=== PATIENT | male | born 1955 | race Caucasian/White ===

== ENCOUNTER 2017-09-18 09:57 | Outpatient (CLI) | payer OTHER | END 2017-09-18 09:58 | disposition home or self-care (01) | LOC: EKG 09:57 | PROVIDERS: ATTEND Family Medicine | DX: R06.09 Other forms of dyspnea (principal) | CPT/HCPCS: 93017 ==

== ENCOUNTER 2018-06-29 15:40 | Outpatient (CLI) | payer MEDICARE ==
--- NOTE | 2018-06-29 16:55 | RAD ---
LUMBAR SPINE THREE VIEWS INCLUDING LATERAL AND FLEXION AND EXTENSION VIEWS: HISTORY: Degenerative disk disease, M51.36. FINDINGS: Neutral, flexion, and extension views of the lumbar spine demonstrate disk space height loss at L4-L5 . Mild anterior osteophytes are seen at the L3, L4, and L5 levels. Findings compatible with changes of spondylosis. No acute abnormalities seen. IMPRESSION: Mild mid and lower lumbar changes of spondylosis. POS: NADINE
--- NOTE | 2018-06-29 17:08 | MRI ---
MRI LUMBAR SPINE: 06/29/2018 COMPARISON: 05/01/2016 TECHNIQUE: Multiplanar, multisequence, noncontrast-enhanced MR images of the lumbar spine demonstrate a large nu mber of cysts involving the right kidney. FINDINGS: The central canal and neural foramen are patent. L1-L2: Unremarkable, except for some minimal facet hypertrophy. The central canal and neural forame n are patent. L2-L3: Disk desiccation is seen. There is broad-based central and left L2-L3 lateral recess disk pr otrusion. This is unchanged since the previous comparison MRI from 05/01/2016. The degree of centra l and left paracentral stenosis is unchanged. The neural foramen are patent. L3-L4: Annular fissure seen at the posterior aspect of the annulus fibrosis. A broad-based disk pro trusion with bilateral facet hypertrophy is seen. This results in moderate central and right paracen tral stenosis. This has not significantly changed since the previous exam. The neural foramen are p atent. L4-L5: Disk desiccation is seen. There is a broad-based disk protrusion with bilateral severe facet and ligamentum flavum hypertrophy. This results in severe L4-L5 central stenosis, more pronounced t mann on the previous comparison exam, suggesting increasing L4-L5 central and lateral recess stenosis. There is moderate to severe right, and mild left-sided neural foraminal narrowing present. L5-S1: Disk desiccation is seen. There is a broad-based central disk protrusion, resulting in mild central stenosis. There is mild right and moderate to severe left-sided neural foraminal narrowing s een. IMPRESSION: Severe L4-L5 central and lateral recess stenosis, worsening since the previous comparison examination . There are also broad-based central disk protrusions at L2-L3, L3-L4, and L5-S1. POS: NADINE
== END 2018-06-29 15:41 | disposition home or self-care (01) ==
LOC: TBSIIMAG 15:40
PROVIDERS: ATTEND Nurse Practitioner Family
DX: M51.16 Intervertebral disc disorders with radiculopathy, lumbar region (principal); M47.26 Other spondylosis with radiculopathy, lumbar region; M48.061 Spinal stenosis, lumbar region without neurogenic claudication; M51.17 Intervertebral disc disorders with radiculopathy, lumbosacral region
CPT/HCPCS: 72100; 72148

== ENCOUNTER 2018-08-24 12:09 | Outpatient (CLI) | payer MEDICARE ==
--- NOTE | 2018-08-24 13:23 | ULT ---
BILATERAL RENAL ULTRASOUND COMPLETE: HISTORY: Renal cyst. Followup MRI. FINDINGS: The right kidney measures 16.5 x 8.4 x 6.6 cm. There is a large 8.2 x 9.8 x 9.6 cm septated right re nal cyst. The left kidney measures 11.1 x 6.7 x 5.7 cm. No renal hydronephrosis. Urinary bladder appears unremarkable. IMPRESSION: Large septated right renal cyst. No renal hydronephrosis or other acute process. POS: OFF
== END 2018-08-24 12:10 | disposition home or self-care (01) ==
LOC: BICULT 12:09
PROVIDERS: ATTEND Family Medicine
DX: N28.1 Cyst of kidney, acquired (principal)
CPT/HCPCS: 76770

== ENCOUNTER 2018-09-10 09:53 | Outpatient (CLI) | payer MEDICARE ==
[2018-09-10] MEDS ORDERED: Iopamidol 370 76% 100 ML VIAL ONE (11:15)
--- NOTE | 2018-09-10 15:39 | CT ---
CTA of the abdomen with IV contrast and 3-D reformatted imaging INDICATION: Preoperative planning for right renal surgery and: History of large right renal cyst COMPARISON: No CT comparisons are available. Comparisons are made with a renal ultrasound dated 019. FINDINGS: There is a 9.6 x 11.4 x 9 cm septated cyst involving the superior pole the right kidney. No additional focal renal lesion is evident. There is a peripherally enhancing hypodense lesion in segment 6 of the right hepatic lobe which is no nspecific. There is prominent fatty liver. The pancreas, adrenal glands and spleen are normal appearing. The celiac, SMA and ONEL are widely patent. There is beaded appearance to the mid to distal renal jean chitra bilaterally, right greater than left. No definite hemodynamically significant stenosis is demonstrated. There are single renal arteries bilaterally. No aneurysmal dilatation of the abdominal aorta is present. No acute osseous abnormality is evident. IMPRESSION: 1. Large septated cyst involving the superior pole the right kidney. 2. Bilateral single renal arteries with a beaded appearance involving the mid to distal aspects of rea th renal arteries, right greater than left. Findings are most suspicious for changes of fibromuscular dysplasia. 3. Peripheral arterially enhancing lesion of the right hepatic lobe is incompletely characterized. A nonemergent follow-up MR or CT of the abdomen utilizing hemangioma protocol is recommended for further characterization. Findings may reflect an atypical hemangioma or possibly a arterial venous m alformation. 4. Fatty liver
== END 2018-09-10 09:54 | disposition home or self-care (01) ==
LOC: CT 09:53
PROVIDERS: ATTEND Urology
DX: N28.1 Cyst of kidney, acquired (principal); K76.9 Liver disease, unspecified; K76.0 Fatty (change of) liver, not elsewhere classified
CPT/HCPCS: 74175; Q9967

== ENCOUNTER 2018-09-25 09:56 | Day surgery (SDC) | payer MEDICARE, OTHER ==
[2018-09-21 11:20] VITALS: BMI 31.8
[2018-09-25 10:33] LABS: #Eosinphils 0.1 thou/uL (0.0-0.7); #Lymphocytes 1.8 thou/uL (1.20-3.40); #Monocytes 0.6 thou/uL (0.11-0.59); #Neutrophils 2.5 thou/uL (1.40-6.50); %Basophils 0.3 % (0.0-1.0); %Eosinophils 2.2 % (0.0-10.0); %Lymphocytes 35.4 % (21.0-51.0); %Monocytes 11.6 % (0.0-10.0); %Neutrophils 50.5 % (42.0-75.0); Hemoglobin 17.2 g/dL (14.0-18.0); Mean Corpuscular HGB CONC 33.6 g/dL (32.0-36.0); Mean Corpuscular Hemoglobin 31.7 pg (27.0-31.0); Mean Corpuscular Volume 94.4 fL (78.0-98.0); Mean Platelet Volume 8.5 fL (7.4-10.4); Platelet Count 142 thou/uL (130-400); Red Blood Cell (RBC) Count 5.42 mill/uL (4.70-6.10); White Blood Cell (WBC) Count 4.9 thou/uL (4.8-10.8)
[2018-09-25 10:49] LABS: INR-International Normal Ratio 1.1; Prothrombin Time 13.9 SEC (12.0-14.7)
[2018-09-25 11:01] LABS: Anion Gap 14 mmol/L (10-20); BUN (Urea Nitrogen) 17 mg/dL (8.4-25.7); Calc. Creatinine Clearance 79 mL/min (70-130); Calcium 9.3 mg/dL (7.8-10.44); Carbon Dioxide 26 mmol/L (23-31); Chloride 104 mmol/L (98-107); Estimated GFR-MDRD 51; Glucose 98 mg/dL (80-115); Potassium 4.7 mmol/L (3.5-5.1); Sodium 139 mmol/L (136-145)
[2018-09-25] MEDS ORDERED: Thrombin 5000 UNITS/5 ML VIAL ONE ×2 (12:59→15:42)
[2018-09-25] MEDS ORDERED: Sodium Chloride 0.9% 10 ML ONE (12:59)
[2018-09-25] MEDS ORDERED: Bacitracin Zinc Ointment 30 gm TUBE ONE (12:59)
[2018-09-25] MEDS ORDERED: Fentanyl 100 MCG/2 ML VIAL ONE ×4 (13:08→18:39)
[2018-09-25] MEDS ORDERED: Bisacodyl 10 MG SUPP PR PRN (17:24)
[2018-09-25] MEDS ORDERED: HYDROcodone/Acetaminophen 7.5/325 mg Tablet PO PRN (17:24)
[2018-09-25] MEDS ORDERED: Acetaminophen 325 MG TAB PO PRN (17:24)
[2018-09-25] MEDS ORDERED: Ondansetron HCl/PF 4 MG/2 ML Vial IVP PRN (17:24)
[2018-09-25] MEDS ORDERED: Mag-Al 1200 mg/1200 mg/30 ML UDCUP PO PRN (17:24)
[2018-09-25] MEDS ORDERED: Fleet Enema 133 ML BOT PR PRN (17:24)
[2018-09-25] MEDS ORDERED: Milk Of Magnesia 30 ML UDCUP PO PRN (17:24)
[2018-09-25] MEDS ORDERED: Promethazine HCl 25 MG/ML VIAL IM/IV PRN (17:24)
[2018-09-25] MEDS ORDERED: Promethazine HCl 25 MG/ML VIAL IM PRN (17:24)
[2018-09-25] MEDS ORDERED: traMADol HCl 50 MG TAB PO PRN (17:24)
[2018-09-25] MEDS ORDERED: Acetaminophen/Codeine 30-300mg Tablet PO PRN (17:24)
[2018-09-25] MEDS ORDERED: Promethazine HCl 25 MG/ML VIAL SLOW IVP PRN (17:24)
[2018-09-25] MEDS ORDERED: Lidocaine 1% PF 5 ML VIAL ONE (17:32)
[2018-09-25] MEDS ORDERED: Rocuronium Bromide 10 MG/ML (10ML VIAL) ONE (17:32)
[2018-09-25] MEDS ORDERED: PHENYLEPHRINE-NS 100 MCG/ML 10 ML SYRINGE ONE (17:32)
[2018-09-25] MEDS ORDERED: PROPOFOL 200 MG/20 ML VIAL ONE (17:32)
[2018-09-25] MEDS ORDERED: Ondansetron PF 4 MG/2 ML Vial ONE (17:32)
[2018-09-25] MEDS ORDERED: Dexamethasone 20 MG/5 ML VIAL ONE (17:32)
[2018-09-25] MEDS: Morphine 2 MG/ML SYRINGE SLOW IVP PRN ×3 (19:42→22:43)
[2018-09-25] MEDS: Cyclobenzaprine 10 MG TAB PO PRN (19:44)
[2018-09-25] MEDS: CEFAZOLIN 2 GM in Premix Bag 1 BAG IVPB SCH (19:45)
[2018-09-25] MEDS ORDERED: HYDROcodone/Acetaminophen 10/325 mg Tablet PO PRN ×2 (20:34)
[2018-09-25] MEDS ORDERED: HYDROcodone/Acetaminophen 10/325 mg Tablet PO SCH (20:45)
[2018-09-25] MEDS ORDERED: Famotidine/PF 20 mg/2ml Vial SLOW IVP SCH (22:45)
[2018-09-26] MEDS ORDERED: HYDROcodone/Acetaminophen 7.5/325 mg Tablet PO PRN (01:06)
[2018-09-26] MEDS ORDERED: Losartan/Hydrochlorothiazide 100 mg/25 mg Tablet PO SCH ×2 (01:15→09:00)
[2018-09-26] MEDS ORDERED: hydrALAZINE 20 MG/ML VIAL SLOW IVP PRN (01:43)
[2018-09-26] MEDS: CEFAZOLIN 2 GM in Premix Bag 1 BAG IVPB SCH (05:20)
[2018-09-26] MEDS: Sodium Chloride 0.9% 1,000 ML IV SCH ×2 (06:06→07:39)
[2018-09-26] MEDS: HYDROcodone/Acetaminophen 7.5/325 mg Tablet PO PRN ×2 (06:44→12:37)
[2018-09-26 08:15] VITALS: TEMP 98.5
[2018-09-26] MEDS: Cyclobenzaprine 10 MG TAB PO PRN (10:27)
--- NOTE | 2018-09-26 12:08 | DIS ---
DATE OF ADMISSION: 09/25/2018 DATE OF DISCHARGE: 09/26/2018 Mr. Kumari is admitted to [facility] by Dr. Davy Mcfarlane on September 25, 2018, was discharged subsequently on September 26, 2018. ADMISSION DIAGNOSIS: Status post lumbar laminectomy. DISCHARGE DIAGNOSIS: Status post lumbar laminectomy. HOSPITAL COURSE: Mr. Kumari's hospital course was complicated early by difficulty maintaining adequate pain control. Medications were adjusted and he improved significantly. Ultimately, he was discharged home in stable condition with outpatient followup planned in two weeks. Job ID: [id number]
[2018-09-26 12:23] VITALS: BP 114/69
--- NOTE | 2018-09-28 10:09 | OP ---
DATE OF PROCEDURE: 09/25/2018 LOCATION: OR 12. WOUND CLASSIFICATION: Type 1 wound. PRINTED CIRCUIT BOARD DRAFTER: Ace Antonio PA-C PREPROCEDURE DIAGNOSIS: Multilevel lumbar stenosis with low back pain, leg pain, and lumbar disk extrusions. POSTPROCEDURE DIAGNOSIS: Multilevel lumbar stenosis with low back pain, leg pain, and lumbar disk extrusions. PROCEDURES PERFORMED: 1. L2-L3, L3-L4, L4-L5, L5-S1 laminectomies, partial facetectomies, foraminotomies. 2. Left L2-L3 diskectomy. 3. Right L4-L5 transfacet, far lateral approach for diskectomy for decompression of the exiting right L4 nerve root. 4. Use of operative microscope for microdissection. DESCRIPTION OF PROCEDURE: After informed consent was obtained from the patient, the patient was brought to the OR. Proper patient, pause, and identification were carried out. He was placed in excellent general endotracheal anesthesia and positioned prone on the OR table. All appropriate points were padded. We identified the L2 through S1 dorsal spines and lamina. A linear dami was made over this region. This area was sterilely cleansed, prepared, and draped. Proper patient, pause, and identification were carried out. The wound was then opened with a combination of sharp, monopolar, and blunt dissection. The L2, L3, L4, L5, and S1 dorsal spines and lamina were exposed. Localization film confirmed area of interest. We then performed an L2, L3, L4, L5, and S1 laminectomies, partial facetectomies, foraminotomies. We then brought the microscope in for microdissection, did a left L2-L3 diskectomy with excellent decompression of the traversing left L3 nerve root. I then turned my attention to the right L4-L5 transfacet for lateral and far lateral diskectomy to maximize decompression of the exiting right L4 nerve root. Disk material was removed there and microscope was used for microdissection as well. Copious irrigation occurred throughout as did maximizing hemostasis. The wound was then closed in anatomic layers following sprinkling of vancomycin powder. The patient emerged from anesthesia. Job ID: [id number]
--- NOTE | 2018-09-30 14:49 | EKG ---
Test Reason : Blood Pressure : / mmHG Vent. Rate : 088 BPM Atrial Rate : 088 BPM P-R Int : 150 ms QRS Dur : 086 ms QT Int : 346 ms P-R-T Axes : 039 076 057 degrees QTc Int : 418 ms Normal sinus rhythm Normal ECG No previous ECGs available Confirmed by LILLY MARKS ([id number]) on 09/30/2018 2:49:09 PM Referred By: HOSSEIN Confirmed By:LILLY MARKS
== END 2018-09-26 12:44 | disposition home or self-care (01) ==
LOC: SDC 09:56 → SJJU 17:24 → SDC 09-26 12:44
PROVIDERS: ATTEND Surgery
PROC: 0ST20ZZ Resection of Lumbar Vertebral Disc, Open Approach (ICD-10-PCS; principal; 2018-09-25)
DX: M48.061 Spinal stenosis, lumbar region without neurogenic claudication (principal); M51.26 Other intervertebral disc displacement, lumbar region; M51.27 Other intervertebral disc displacement, lumbosacral region
CPT/HCPCS: 36415; 76000; 80048; 85025; 85610; 85730; 93005; 93010; J0131; J0360; J0690; J1100; J2001; J2270; J2405; J2550; J2704; J3010; J3370; J3490

== ENCOUNTER 2018-09-27 23:51 | Observation (INO) | payer MEDICARE, OTHER ==
[2018-09-28] MEDS ORDERED: Morphine 4 MG/ML VIAL ONE (00:12)
[2018-09-28 00:43] LABS: Hemoglobin 13.3 g/dL (14.0-18.0); Mean Corpuscular HGB CONC 34.6 g/dL (32.0-36.0); Mean Corpuscular Hemoglobin 32.7 pg (27.0-31.0); Mean Corpuscular Volume 94.5 fL (78.0-98.0); RBC Distribution Width 11.7 % (11.5-14.5); Red Blood Cell (RBC) Count 4.07 mill/uL (4.70-6.10); White Blood Cell (WBC) Count 9.4 thou/uL (4.8-10.8)
[2018-09-28 00:45] LABS: #Lymphocytes 1.3 thou/uL (1.20-3.40); %Basophils 0.2 % (0.0-1.0); %Eosinophils 0.4 % (0.0-10.0); %Lymphocytes 14.1 % (21.0-51.0); %Monocytes 10.9 % (0.0-10.0); %Neutrophils 74.3 % (42.0-75.0); Mean Platelet Volume 8.6 fL (7.4-10.4); Platelet Count 108 thou/uL (130-400); Platelet Morphology Comment Appears Decreased; RBC Morphology Normal
[2018-09-28] MEDS ORDERED: Ketorolac Tromethamine 30 MG/ML VIAL ONE (00:45)
[2018-09-28] MEDS ORDERED: Dexamethasone 10 MG/ML VIAL ONE (00:45)
[2018-09-28 00:56] LABS: ALT (SGPT) 15 U/L (8-55); AST (SGOT) 29 U/L (5-34); Albumin 3.7 g/dL (3.4-4.8); Alkaline Phosphatase 34 U/L (40-150); Anion Gap 10 mmol/L (10-20); BUN (Urea Nitrogen) 20 mg/dL (8.4-25.7); Bilirubin, Total 0.9 mg/dL (0.2-1.2); Calc. Creatinine Clearance 0 mL/min (70-130); Calcium 8.4 mg/dL (7.8-10.44); Carbon Dioxide 29 mmol/L (23-31); Chloride 99 mmol/L (98-107); Estimated GFR-MDRD 60; Glucose 94 mg/dL (80-115); Potassium 4.2 mmol/L (3.5-5.1); Protein, Total 5.7 g/dL (5.8-8.1); Sodium 134 mmol/L (136-145)
[2018-09-28] MEDS ORDERED: Methocarbamol 500 MG TAB PO SCH (01:30)
[2018-09-28] MEDS ORDERED: Methocarbamol 500 MG TAB PO PRN (03:16)
[2018-09-28] MEDS ORDERED: Morphine 4 MG/ML VIAL SLOW IVP PRN (03:16)
[2018-09-28 05:23] VITALS: BMI 31.8
[2018-09-28] MEDS ORDERED: traMADol HCl 50 MG TAB PO PRN (10:12)
[2018-09-28] MEDS ORDERED: Loratadine 10 MG TAB PO PRN (10:13)
[2018-09-28] MEDS ORDERED: Cyclobenzaprine 10 MG TAB PO PRN (10:13)
[2018-09-28] MEDS: tiZANidine HCl 4 MG TAB PO PRN ×2 (10:28→18:30)
--- NOTE | 2018-09-28 12:28 | HP ---
This is Ace Antonio PA-C dictating a report for Davy Mcfarlane MD. HISTORY OF PRESENT ILLNESS: Mr. Cowan is readmitted to [facility], having undergone multilevel lumbar laminectomies on Tuesday, September 25, 2018. The patient did well initially in regard to back and leg pain; however, had significant recurrence of muscle spasm into the back as well as some pain into the legs, although the majority of his pain has resided in his incisional area to bilateral paralumbar regions. Apparently this became so severe that he required transfer back to [place] from home via ambulance for intractable low back pain. He denies falls or difficulty with strength in the legs. On my exam, he looks much more comfortable, though he attempted to sit up on the edge of the bed was unable to do this due to low back pain. When lying down, he again is more comfortable. He has full strengths in the bilateral lower extremities with intact sensation to light touch throughout on exam. His incision is covered with a dressing and there is a scant amount of drainage on the dressing, but otherwise no surrounding erythema or significant drainage. The main issue now is pain control and we will work on this. Therapies have been ordered. IMPRESSION AND DIAGNOSIS: Status post multilevel lumbar laminectomies on 09/25/2018 with intractable low back pain. PLAN: At this time again, we will work on working with therapies and pain control, but likely the patient will meet criteria for discharge tomorrow or the next day, again secondary to pain control. Overall, the patient is pleased with his outcome in regard to his improvement in leg pain as well as walking, but at this time, we will continue with pain control. His , the nursing staff, and his family were updated at bedside. Please call with any changes in the patient's neurologic status. Job ID: [id number]
[2018-09-28] MEDS ORDERED: HYDROcodone/Acetaminophen 5/325 mg Tablet PO PRN (13:35)
[2018-09-28] MEDS: HYDROcodone/Acetaminophen 5/325 mg Tablet PO PRN ×2 (13:35→19:59)
[2018-09-29] MEDS: tiZANidine HCl 4 MG TAB PO PRN ×2 (02:48→16:26)
[2018-09-29] MEDS: Losartan/Hydrochlorothiazide 100 mg/25 mg Tablet PO SCH (08:37)
[2018-09-29] MEDS: HYDROcodone/Acetaminophen 5/325 mg Tablet PO PRN ×2 (08:37→17:24)
[2018-09-29] MEDS ORDERED: Losartan/Hydrochlorothiazide 100 mg/25 mg Tablet PO SCH (09:00)
[2018-09-29] MEDS ORDERED: methylPREDNISolone 4 mg Tablet PO SCH (09:00)
[2018-09-29] MEDS ORDERED: Non-Formulary Item 1 EACH (Omeprazole [Omeprazole] 20 MG) PO SCH (09:00)
[2018-09-29] MEDS: Docusate 100 MG CAP PO PRN ×2 (09:59→20:42)
[2018-09-29] MEDS: Ketorolac Tromethamine 30 MG/ML VIAL IVP PRN ×3 (10:00→21:41)
--- NOTE | 2018-09-29 10:18 | PRG ---
DATE OF SERVICE: 09/29/2018 Mr. Kumari is well known to me. He is postoperative day 4 from lumbar laminectomy, transfacet diskectomy. He did well postoperatively, went home the next day. Unfortunately, he was readmitted for intractable low back pain related to muscle spasm. I suspect there maybe a component of radiculitis as well. His states that historically narcotics have not worked very well for his pain control, and as such, I would like to escalate our pain management regimen. His muscle spasms are limiting his mobility. We will add Toradol and a Medrol Dosepak and escalate the muscle spasm regimen as well to include not only the tizanidine that he has been taking, but Valium. We will continue the [place], and hopefully, in front of this, I will also use ice to manage his pain. Neurologically, he has improvement in his bilateral lower extremity pain and simply has low back pain that radiates into the groin region and this is mainly with movements, again making me suspect a muscle spasm issue. Job ID: [id number]
[2018-09-29] MEDS: Diazepam 5 MG TAB PO PRN ×2 (11:21→20:42)
[2018-09-29] MEDS: methylPREDNISolone 4 mg Tablet PO SCH ×3 (12:38→20:42)
[2018-09-30] MEDS: tiZANidine HCl 4 MG TAB PO PRN ×2 (00:48→08:30)
[2018-09-30] MEDS: Ketorolac Tromethamine 30 MG/ML VIAL IVP PRN ×2 (04:24→12:25)
[2018-09-30] MEDS: Diazepam 5 MG TAB PO PRN (04:24)
[2018-09-30] MEDS ORDERED: Clopidogrel Bisulfate 75 MG TAB ONE (05:42)
[2018-09-30] MEDS: methylPREDNISolone 4 mg Tablet PO SCH ×3 (08:31→16:58)
[2018-09-30] MEDS: Losartan/Hydrochlorothiazide 100 mg/25 mg Tablet PO SCH (08:31)
--- NOTE | 2018-09-30 10:15 | PRG ---
DATE OF SERVICE: 09/30/2018 Mr. Kumari is now hospital day 2 admitted for intractable muscle spasm pain. He has had no leg pain and his symptoms are mildly improved this morning with augmenting his pain and muscle spasm medication regimen. He has been able to make it to the bedside commode. Again, when he does any rotation or twisting, he has muscle spasm. We are continuing to work in this regard. I anticipate at least another day in the hospital. Neurologically, he is doing exceptionally well and his dressing is dry. Job ID: [id number]
[2018-09-30] MEDS: Docusate 100 MG CAP PO PRN (12:23)
[2018-09-30] MEDS: HYDROcodone/Acetaminophen 5/325 mg Tablet PO PRN (12:23)
--- NOTE | 2018-09-30 14:59 | EKG ---
Test Reason : STAT Blood Pressure : / mmHG Vent. Rate : 118 BPM Atrial Rate : 118 BPM P-R Int : 146 ms QRS Dur : 088 ms QT Int : 314 ms P-R-T Axes : 041 071 037 degrees QTc Int : 440 ms Sinus tachycardia Otherwise normal ECG Confirmed by LILLY MARKS ([id number]) on 09/30/2018 2:58:33 PM Referred By: YULIET CATALAN Confirmed By:LILLY MARKS
[2018-09-30] MEDS ORDERED: methylPREDNISolone 4 mg Tablet PO SCH (21:00)
[2018-10-01] MEDS: Diazepam 5 MG TAB PO PRN ×2 (02:49→10:53)
[2018-10-01] MEDS: Docusate 100 MG CAP PO PRN ×2 (02:50→08:47)
[2018-10-01 04:40] VITALS: TEMP 97.7
[2018-10-01] MEDS: methylPREDNISolone 4 mg Tablet PO SCH ×2 (08:46→10:53)
[2018-10-01] MEDS: tiZANidine HCl 4 MG TAB PO PRN (08:46)
[2018-10-01] MEDS: Losartan/Hydrochlorothiazide 100 mg/25 mg Tablet PO SCH (08:47)
[2018-10-01] MEDS ORDERED: Polyethylene Glycol 3350 17 GM Packet PER TUBE SCH (09:00)
[2018-10-01 09:04] VITALS: BP 143/92
--- NOTE | 2018-10-01 09:58 | PRG ---
DATE OF SERVICE: 10/01/2018 We have been able to obtain satisfactory pain control at this point. He is mobilizing. He states he feels exceptionally better. He has no leg pain. His wound is dry. He will be dismissed. Job ID: [id number]
[2018-10-01] MEDS: HYDROcodone/Acetaminophen 5/325 mg Tablet PO PRN (10:25)
[2018-10-02] MEDS ORDERED: methylPREDNISolone 4 mg Tablet PO SCH (08:00)
[2018-10-03] MEDS ORDERED: methylPREDNISolone 4 mg Tablet PO SCH (08:00)
[2018-10-04] MEDS ORDERED: methylPREDNISolone 4 mg Tablet PO SCH (08:00)
== END 2018-10-01 11:30 | disposition home or self-care (01) ==
LOC: ERS 23:51 → SURG B 09-28 02:10
PROVIDERS: ADMIT Surgery; ATTEND Surgery
DX: M62.830 Muscle spasm of back (principal); M79.662 Pain in left lower leg; M79.661 Pain in right lower leg; E78.00 Pure hypercholesterolemia, unspecified; K21.9 Gastro-esophageal reflux disease without esophagitis; Z79.899 Other long term (current) drug therapy
CPT/HCPCS: 80053; 83735; 84484; 85025; 93005; 96374; 96375; 96376 ×2; 97110 ×2; 97116 ×3; 97139 ×3; 97530; 99284; G0378 ×3; 36415; J1100; J1885; J2270; J7509

== ENCOUNTER 2018-11-30 08:21 | Outpatient (CLI) | payer MEDICARE, OTHER ==
--- NOTE | 2018-11-30 12:14 | CT ---
CT ABDOMEN WITH AND WITHOUT IV CONTRAST: HISTORY: ___ hemangioma. COMPARISON: CTA abdomen of 09/10/2018. FINDINGS: The 2.8 cm lesion in the inferior aspect of the right lobe of the liver demonstrates peripheral nodul ar enhancement with centripetal filling consistent with hemangioma. There is fatty infiltration of t he liver. The spleen, pancreas, and adrenal glands appear normal. Cysts in the kidneys are again se en. There is a small scar in the left kidney. The large septated cyst involving the superior pole o f the right kidney is redemonstrated. No free air, free fluid, or lymphadenopathy is seen in the abdomen. No calcified gallstones are note d. There are vascular calcifications without evidence of aneurysmal dilatation of the abdominal aort a. A normal-appearing appendix is present. There are degenerative changes in the spine. There are mild dependent changes in the lung bases. IMPRESSION: 1. Liver hemangioma. 2. Fatty liver. 3. Renal cysts. POS: OFF
[2018-11-30] MEDS ORDERED: ISOVUE-370 76%-LOCM 1 ML ONE (13:35)
== END 2018-11-30 08:22 | disposition home or self-care (01) ==
LOC: BICCT 08:21
PROVIDERS: ATTEND Physician Assistant Medical
DX: K76.0 Fatty (change of) liver, not elsewhere classified (principal); R10.13 Epigastric pain; R93.3 Abnormal findings on diagnostic imaging of other parts of digestive tract; D18.03 Hemangioma of intra-abdominal structures; N28.1 Cyst of kidney, acquired
CPT/HCPCS: 74170; 82565

== ENCOUNTER 2019-01-11 16:30 | Observation (INO) | payer MEDICARE, OTHER ==
[2019-01-11] MEDS ORDERED: Ondansetron PF 4 MG/2 ML Vial ONE (17:12)
[2019-01-11 17:30] LABS: Troponin I Less than 0.010 ng/mL (< 0.028)
[2019-01-11] MEDS ORDERED: Ondansetron ODT 4 MG TAB PO PRN (19:01)
[2019-01-11] MEDS ORDERED: Acetaminophen 325 MG TAB PO PRN (19:01)
[2019-01-11] MEDS ORDERED: Ondansetron PF 4 MG/2 ML Vial IVP PRN (19:01)
[2019-01-11 20:43] LABS: Troponin I 0.014 ng/mL (< 0.028)
[2019-01-11] MEDS ORDERED: Famotidine/PF 20 mg/2ml Vial SLOW IVP SCH (21:00)
[2019-01-11] MEDS: Sodium Chloride 0.9% 1,000 ML IV SCH (21:41)
[2019-01-11] MEDS: Famotidine 20 MG TAB PO SCH (21:41)
[2019-01-11 21:50] VITALS: BMI 32.6
--- NOTE | 2019-01-11 22:47 | HP ---
PRIMARY CARE PHYSICIAN: Rajiv Mohan DO CHIEF COMPLAINT: Nausea, vomiting, and dizziness. HISTORY OF PRESENT ILLNESS: Mr. Kumari is a very pleasant 63-year-old male with past medical history significant for hypertension, hyperlipidemia, and GERD, who presented to the hospital after suffering from an episode of nausea, vomiting, and profuse diaphoresis, which occurred after going fishing early this morning. The patient states that he was on [facility] with his brother doing some [place] fishing, and was in his usual state of health up until mid morning. They moved the kayak under a bridge to get out of the heat, when the patient stated that he began "not feeling very well" and thought he needed to eat something. He began feeling very hot and dizzy, and then had an episode of nausea and vomiting. He and his brother had to paddle the kayak back to shore, where the patient continued to feel very dizzy and lightheaded. His was called and took him to the emergency department for further workup and treatment. She states that he continued to feel poorly all the way to the hospital and she witnessed a very brief syncopal episode, although the patient does not remember any details regarding this. He does say that while paddling the kayak back to shore, he did have a brief episode of chest discomfort but he did believe that this was secondary to his episodes of vomiting. On arrival to the emergency department, the patient was mildly hypotensive with a blood pressure of 84/58 and he was mildly tachycardic with a blood pressure of 105. His EKG showed normal sinus rhythm with no ischemic ST or T-wave changes and his troponin was negative. Lab work was remarkable for a creatinine of 3.03, and BUN of 26. The patient's baseline creatinine appears to be somewhere between 1.2 and 1.4. The patient was given 2 L of IV fluid, with prompt recovery of his blood pressure as well as his heart rate. The patient feels much improved. He is no longer nauseated. No further vomiting. REVIEW OF SYSTEMS: A 12-point review of systems performed and is negative except that stated above. PAST MEDICAL HISTORY: As mentioned, hypertension, hyperlipidemia, GERD, seasonal allergies, as well as history of lumbar spinal stenosis requiring multiple surgeries. PAST SURGICAL HISTORY: Positive for radial keratotomy many years ago, LASIK surgery, right foot surgery as well as an arthroscopic knee repair of his right knee. The patient has had numerous procedures on his back, with multilevel lumbar laminectomies. 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 He does drink alcohol socially. He is . No drug use or illicit drug use. FAMILY HISTORY: Positive for DE in his sister. ALLERGIES: NO KNOWN DRUG ALLERGIES. HOME MEDICATIONS: 1. Omeprazole 20 mg one tablet daily. 2. Claritin 10 mg tablet, one tablet daily. 3. Lisinopril hydrochlorothiazide 20/12.5 one tab orally daily. PHYSICAL EXAMINATION: VITAL SIGNS: Blood pressure 137/77, pulse 95, O2 saturation is 96% on room air, temperature 98.1. GENERAL: This is a well-appearing mildly obese male, resting comfortably in the ER bed, in no acute distress. HEENT: Head is atraumatic and normocephalic. Mucous membranes are moist. NECK: Trachea is midline. No lymphadenopathy. CV: S1 and S2. Regular rate and rhythm. No appreciable murmurs, rubs, or gallops. LUNGS: Regular respiratory rate and pattern. Clear to auscultation bilaterally. ABDOMEN: Positive bowel sounds. Mildly obese. Nontender. EXTREMITIES: No edema. NEUROLOGIC: Cranial nerves 2 through 12 are grossly intact. The patient is nonfocal. LABORATORY DATA: Sodium 141, potassium 4.1, chloride 100, carbon dioxide 21, anion gap is 24, BUN is 26, creatinine is 3.03, GFR 21, glucose 129, calcium 11.6, AST 32, ALT 32, alk phosphatase 51, creatine kinase 413, troponin negative x2. ASSESSMENT: 1. Acute on chronic stage 3 kidney disease, creatinine 3.03 at presentation, baseline appears to be 1.2-1.4, this is likely secondary to dehydration. 2. Nausea, vomiting, and profuse diaphoresis, suspect secondary to heat exhaustion, resulting in above, resolved. 3. Hypertension. PLAN: The patient will be admitted for continued IV fluid resuscitation. We will obtain orthostatic vital signs. We will repeat his lab work in the morning. I have discussed this case at length with Dr. Culver, who agrees with plan as outlined previously. The patient did mention a brief episode of chest discomfort related to his nausea and vomiting, however, his EKG is normal and he has had no bump in his troponin. He may need a nuclear stress test in the future if he would have any cardiac symptoms for further risk stratification, but the clinical picture at this point is heat exhaustion and dehydration. Expect discharge tomorrow if the patient's renal function returns to baseline. Job ID: [id number] MTDD
[2019-01-12 04:30] LABS: #Eosinphils 0.1 thou/uL (0.0-0.7); #Lymphocytes 1.8 thou/uL (1.20-3.40); #Monocytes 0.8 thou/uL (0.11-0.59); #Neutrophils 3.9 thou/uL (1.40-6.50); %Basophils 0.1 % (0.0-1.0); %Eosinophils 1.2 % (0.0-10.0); %Lymphocytes 27.7 % (21.0-51.0); %Monocytes 11.8 % (0.0-10.0); %Neutrophils 59.3 % (42.0-75.0); Hemoglobin 15.4 g/dL (14.0-18.0); Mean Corpuscular HGB CONC 34.5 g/dL (32.0-36.0); Mean Corpuscular Hemoglobin 32.6 pg (27.0-31.0); Mean Corpuscular Volume 94.7 fL (78.0-98.0); Mean Platelet Volume 8.5 fL (7.4-10.4); Platelet Count 133 thou/uL (130-400); RBC Distribution Width 12.2 % (11.5-14.5); Red Blood Cell (RBC) Count 4.72 mill/uL (4.70-6.10); White Blood Cell (WBC) Count 6.6 thou/uL (4.8-10.8)
[2019-01-12 04:55] LABS: Anion Gap 13 mmol/L (10-20); BUN (Urea Nitrogen) 32 mg/dL (8.4-25.7); Calc. Creatinine Clearance 52 mL/min (70-130); Carbon Dioxide 23 mmol/L (23-31); Chloride 105 mmol/L (98-107); Estimated GFR-MDRD 30; Glucose 90 mg/dL (80-115); Potassium 3.9 mmol/L (3.5-5.1); Sodium 137 mmol/L (136-145)
[2019-01-12] MEDS: Sodium Chloride 0.9% 1,000 ML IV SCH ×3 (05:46→22:14)
[2019-01-12] MEDS: Famotidine 20 MG TAB PO SCH ×2 (09:07→21:07)
[2019-01-12 09:52] LABS: Bacteria/HPF None Seen HPF (None Seen); Bilirubin Negative (Negative); Blood, Urine Negative (Negative); Clarity Clear (Clear); Glucose, Urine (Dipstick) Normal (Negative); Leukocyte Negative Leu/uL (Negative); Nitrite Negative (Negative); Protein, Urine (Dipstick) 20 mg/dL (Neg-Trace); RBC/HPF 0-3 HPF (0-3); Squamous Epithelial 0-3 HPF (0-3); Urobilinogen Normal mg/dL (Less than 2); WBC/HPF 0-3 HPF (0-3)
[2019-01-12 09:57] LABS: Urine Culture Reflex No No
[2019-01-12 11:59] LABS: Anion Gap 11 mmol/L (10-20); BUN (Urea Nitrogen) 30 mg/dL (8.4-25.7); BUN/Creatinine Ratio 15.96; CK (CPK) 631 U/L (30-200); Calc. Creatinine Clearance 61 mL/min (70-130); Calcium 9.1 mg/dL (7.8-10.44); Carbon Dioxide 24 mmol/L (23-31); Chloride 107 mmol/L (98-107); Estimated GFR-MDRD 36; Glucose 113 mg/dL (80-115); Magnesium 1.8 mg/dL (1.6-2.6); Phosphorus 2.6 mg/dL (2.3-4.7); Potassium 4.2 mmol/L (3.5-5.1); Sodium 138 mmol/L (136-145)
--- NOTE | 2019-01-12 19:20 | PDOC.HOSPP ---
- Subjective Encounter Date: 01/12/19 Encounter Time: 08:18 Subjective: Patient without complaints. States he feels significantly better. Close to his baseline. Denies any further episodes of vomiting. Reports feeling tired and sore on his chest due to the excessive rowing he did yesterday to try to get back to shore. No further syncopal episodes. Has been tolerating food and liquids. No chest pain. 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 Otherwise able to be fairly active without any issues. - Objective Vital Signs & Weight: Vital Signs (12 hours) Temp Pulse Resp BP BP BP Pulse Ox 01/12/19 15:24 98.3 F 98 20 133/85 95 01/12/19 11:58 97.7 F 73 16 123/72 95 01/12/19 07:31 97.8 F 83 20 108/63 120/72 107/59 L 96 Weight Weight 241 lb I&O: 01/11/19 01/12/19 01/13/19 06:59 06:59 06:59 Intake Total 1253 2225 Output Total 300 900 Balance 953 1325 Result Diagrams: 01/12/19 04:22 01/12/19 10:56 Hospitalist ROS - Review of Systems Constitutional: denies: fever, chills, sweats, weakness, malaise, other Eyes: denies: pain, vision change, conjunctivae inflammation, eyelid inflammation, redness, other ENT: denies: ear pain, ear discharge, nose pain, nose discharge, nose congestion , mouth pain, mouth swelling, throat pain, throat swelling, other Respiratory: reports: shortness of breath (With extreme exertion, long standing) . denies: cough, dry, hemoptysis, SOB with excertion, pleuritic pain, sputum, wheezing, other Cardiovascular: reports: chest pain (Discomfort across upper chest, feels like muscular soreness from rowing) Gastrointestinal: denies: nausea, vomitting, abdominal pain, diarrhea, constipation, melena, hematochezia, other Genitourinary: denies: dysuria, frequency, incontinence, hematuria, retention, other Musculoskeletal: denies: neck pain, shoulder pain, arm pain, back pain, hand pain, leg pain, foot pain, other Skin: denies: rash, lesions, karissa, bruising, other Neurological: denies: weakness, numbness, incoordination, change in speech, confusion, seizures, other - Medication Medications: Active Medications Generic Name Dose Route Start Last Admin Trade Name Yumi PRN Reason Stop Dose Admin Famotidine 20 mg 01/11/19 21:00 01/12/19 09:07 Pepcid PO 20 mg BID YORDY Administration Sodium Chloride 1,000 mls @ 120 mls/hr 01/11/19 19:15 01/12/19 13:20 Normal Saline 0.9% IV 1,000 mls .[id number] YORDY Administration - Exam General Appearance: NAD, awake alert Eye: PERRL, anicteric sclera ENT: normocephalic atraumatic, no oropharyngeal lesions, moist mucosa Neck: supple, symmetric, no JVD, no thyromegaly, no lymphadenopathy, no carotid bruit Heart: RRR, no murmur, no gallops, no rubs, normal peripheral pulses Respiratory: CTAB, no wheezes, no rales, no ronchi, normal chest expansion Gastrointestinal: soft, non-tender, non-distended, normal bowel sounds, no palpable masses, no bruit Extremities: no edema Skin: normal turgor, no lesions, no rashes Neurological: CN's grossly intact Musculoskeletal: normal tone, normal strength, no muscle wasting Psychiatric: normal affect, normal behavior, A&O x 3 Hosp A/P (1) Heat exhaustion Code(s): T67.5XXA - HEAT EXHAUSTION, UNSPECIFIED, INITIAL ENCOUNTER Status: Acute Plan: Continue IV fluids. Will recheck CK to ensure improving. (2) Severe dehydration Code(s): E86.0 - DEHYDRATION Status: Acute Plan: Will recheck renal function to ensure improving. Continue IVF. Given severe SYMONE will stop JANET inhibitor and start amlodipine for BP instead. Monitor BP. (3) Nausea & vomiting Code(s): R11.2 - NAUSEA WITH VOMITING, UNSPECIFIED Status: Resolved (4) Collapse Code(s): R55 - SYNCOPE AND COLLAPSE Status: Resolved Plan: Will check orthostatic BPs as well as UA/UCx.
[2019-01-13 05:07] LABS: #Eosinphils 0.1 thou/uL (0.0-0.7); #Lymphocytes 1.8 thou/uL (1.20-3.40); #Monocytes 0.5 thou/uL (0.11-0.59); #Neutrophils 2.1 thou/uL (1.40-6.50); %Lymphocytes 40.4 % (21.0-51.0); %Neutrophils 45.6 % (42.0-75.0); Hemoglobin 14.1 g/dL (14.0-18.0); Mean Corpuscular HGB CONC 33.7 g/dL (32.0-36.0); Mean Corpuscular Hemoglobin 32.1 pg (27.0-31.0); Mean Corpuscular Volume 95.2 fL (78.0-98.0); Mean Platelet Volume 8.7 fL (7.4-10.4); Platelet Count 121 thou/uL (130-400); RBC Distribution Width 11.9 % (11.5-14.5); Red Blood Cell (RBC) Count 4.38 mill/uL (4.70-6.10); White Blood Cell (WBC) Count 4.5 thou/uL (4.8-10.8)
[2019-01-13 05:16] LABS: Anion Gap 11 mmol/L (10-20); BUN (Urea Nitrogen) 24 mg/dL (8.4-25.7); CK (CPK) 436 U/L (30-200); Calc. Creatinine Clearance 81 mL/min (70-130); Calcium 8.7 mg/dL (7.8-10.44); Carbon Dioxide 24 mmol/L (23-31); Chloride 106 mmol/L (98-107); Estimated GFR-MDRD 50; Glucose 94 mg/dL (80-115); Potassium 4.3 mmol/L (3.5-5.1); Sodium 137 mmol/L (136-145)
[2019-01-13] MEDS: Sodium Chloride 0.9% 1,000 ML IV SCH (06:59)
[2019-01-13 08:50] VITALS: TEMP 97.3
[2019-01-13] MEDS: Famotidine 20 MG TAB PO SCH (09:06)
[2019-01-13 12:52] VITALS: BP 125/80
--- NOTE | 2019-01-14 15:06 | DIS ---
DATE OF ADMISSION: 01/11/2019 DATE OF DISCHARGE: 01/13/2019 DISCHARGE DIAGNOSES: 1. Heat exhaustion. 2. Dehydration. 3. Ooqrv-ev-nablxpl kidney disease. 4. Rhabdomyolysis. 5. Nausea and vomiting. 6. Hypertension. 7. Hyperlipidemia. HISTORY OF PRESENT ILLNESS: The patient is a 63-year-old male who presented to the emergency department. The patient had a diarrheal illness the evening before presentation. The following morning, he was unable to sleep well and got up very early and went out in a [place] fishing. He started to feel poorly and decided he needed to head back given the long rowing trip that he would have to make back through a watch site. The patient reported he did not make it quite back there, became very nauseated, had some vomiting and essentially slumped in his [place]. He finally was able to get back with help to the shore and was brought to the emergency department where he was noted to be tachycardic and hypotensive. He had labs indicating a creatinine of 3, which is well above the patient's baseline. He also had very slight elevation in his CK. HOSPITAL COURSE: The patient was admitted to the hospital after receiving 2 L of fluid with a diagnosis of heat exhaustion, dehydration, and acute kidney injury with mild rhabdomyolysis. He had no further nausea, vomiting, and his blood pressure ultimately did improve with the IV fluids. His creatinine continued to improve until his GFR was back to 50 near his baseline. His CKs never peaked at a very high number, instructed to come back down, at the time of discharge it was down to 436. He had serial troponins which were unremarkable. BNP which was normal. PHYSICAL EXAMINATION: VITAL SIGNS: On the day of discharge, temperature 97.3, pulse 63, respirations 18, O2 saturations 95% on room air, BP was 125/80 supine, 138/88 sitting, and 151/90 standing. GENERAL APPEARANCE: The patient was awake and alert. HEART: Regular rate and rhythm. LUNGS: Clear bilaterally. ABDOMEN: Benign. EXTREMITIES: No edema. DISPOSITION: The patient is discharged to home. He is to be on his usual diet with no new restrictions. ACTIVITY: As tolerated. DISCHARGE MEDICATIONS: He is to continue with his; 1. Omeprazole. 2. Loratadine. 3. Lisinopril/hydrochlorothiazide. DISCHARGE INSTRUCTIONS: He is encouraged to drink ample fluids and rest over the following few days, and avoid excessive exposure to heat. FOLLOWUP: He is to follow up with his primary care provider and can return to the hospital should he have any problems prior to that time. Job ID: [id number]
== END 2019-01-13 14:16 | disposition home or self-care (01) ==
LOC: ERS 16:30 → 2SW 19:37
PROVIDERS: ADMIT Internal Medicine; ATTEND Internal Medicine
DX: T67.5XXA Heat exhaustion, unspecified, initial encounter (principal); E86.0 Dehydration; I12.9 Hypertensive chronic kidney disease with stage 1 through stage 4 chronic kidney disease, or unspecified chronic kidney disease; N18.3 Chronic kidney disease, stage 3 (moderate); N17.9 Acute kidney failure, unspecified; M62.82 Rhabdomyolysis; R07.89 Other chest pain; E78.5 Hyperlipidemia, unspecified; K21.9 Gastro-esophageal reflux disease without esophagitis; J30.2 Other seasonal allergic rhinitis; Z79.899 Other long term (current) drug therapy
CPT/HCPCS: 80048 ×2; 80069; 81001; 82550 ×2; 83735; 83880; 84132; 84484 ×2; 85025 ×2; 93005; 96361 ×3; 96374; 97139; 99285; G0378 ×4; 36415; J2405

== ENCOUNTER 2019-02-08 12:27 | Outpatient (CLI) | payer MEDICARE, OTHER | END 2019-02-08 12:28 | disposition home or self-care (01) | LOC: ULT 12:27 | PROVIDERS: ATTEND Physician Assistant | DX: R06.02 Shortness of breath (principal); I08.1 Rheumatic disorders of both mitral and tricuspid valves | CPT/HCPCS: 93306 ==

== ENCOUNTER 2019-02-10 06:55 | Outpatient (CLI) | payer MEDICARE, OTHER ==
--- NOTE | 2019-02-10 10:42 | NM ---
EXAM: Nuclear medicine cardiac SPECT with EF and wall motion: HISTORY: Shortness of breath, hypertension, dyslipidemia Protocol: Exam was performed using treadmill stress protocol. The patient is injected with31.4 millicuries of technetium 99m sestamibi intravenously for stress yong ges. The patient is injected with10.7 millicuries of technetium 99 sestamibi intravenously for resting yong ges. Multiple SPECT images are performed in the short axis, vertical long axis, and horizontal long axis. FINDINGS: No scan evidence for infarct or ischemia. TID:0.89 LHR:0.31 EDV:79 mL EF:66% Wall motion:Unremarkable IMPRESSION: Unremarkable cardiac SPECT with EF and wall motion.
== END 2019-02-10 06:56 | disposition home or self-care (01) ==
LOC: NM 06:55
PROVIDERS: ATTEND Physician Assistant
DX: R06.02 Shortness of breath (principal)
CPT/HCPCS: 78452; 93017; A9500

== ENCOUNTER 2019-06-24 13:50 | Outpatient (CLI) | payer MEDICARE, OTHER ==
--- NOTE | 2019-06-24 15:31 | ULT ---
Exam: Bilateral renal ultrasound HISTORY: Right renal cyst. COMPARISON: 08/24/2018 FINDINGS: Right kidney: Multiple anechoic foci in the right renal cortex. Largest anechoic focus emanating from the upper pole measuring 8.4 x 9.6 x 8.1 cm and is compatible with a cyst. No solid masses. No hydronephrosis. Right kidney measurements: 12.4 x 7.4 x 8.0 cm. Left kidney: Normal cortical echotexture. No hydronephrosis Left kidney measurements 11.4 x 7.0 x 5.9 cm. Urinary bladder: Normal mucosa. Prevoid volume is 284 mL. Post void volume is 13 mL. Prostate gland is enlarged measuring 3.2 x 4.0 x 4.8 cm IMPRESSION: 1. Multiple renal cysts. Largest cyst measures 8.4 x 9.6 x 8.1 cm. 2. Bilaterally no hydronephrosis 3. Enlarged prostate gland.
== END 2019-06-24 13:51 | disposition home or self-care (01) ==
LOC: BICULT 13:50
PROVIDERS: ATTEND Family Medicine
DX: N28.1 Cyst of kidney, acquired (principal); N40.0 Benign prostatic hyperplasia without lower urinary tract symptoms
CPT/HCPCS: 76770

== ENCOUNTER 2021-04-03 08:52 | Outpatient (CLI) | payer MEDICARE, OTHER | END 2021-04-03 08:53 | disposition home or self-care (01) | LOC: BICRAD 08:52 | PROVIDERS: ATTEND Nurse Practitioner Family | DX: M47.816 Spondylosis without myelopathy or radiculopathy, lumbar region (principal); M43.16 Spondylolisthesis, lumbar region | CPT/HCPCS: 72110 ==

== ENCOUNTER 2022-06-27 07:51 | Outpatient (CLI) | payer MEDICARE, OTHER | END 2022-06-27 07:52 | disposition home or self-care (01) | LOC: TBSIIMAG 07:51 | PROVIDERS: ATTEND Specialist | DX: M51.16 Intervertebral disc disorders with radiculopathy, lumbar region (principal); M47.26 Other spondylosis with radiculopathy, lumbar region; M48.061 Spinal stenosis, lumbar region without neurogenic claudication; M71.38 Other bursal cyst, other site; M51.17 Intervertebral disc disorders with radiculopathy, lumbosacral region; M47.27 Other spondylosis with radiculopathy, lumbosacral region; M48.07 Spinal stenosis, lumbosacral region; Z98.890 Other specified postprocedural states | CPT/HCPCS: 72148 ==